=== PATIENT | female | born 1990 | race African-American/Black ===

== ENCOUNTER 2016-12-06 18:17 | Emergency (ER) | payer MEDICAID ==
[~2016-12-06] VITALS: Ht 162.6 cm; Wt 79.4 kg
[2016-12-06] MEDS ORDERED: ACETAMINOPHEN 325 MG TAB PO ONE ×2 (19:31→19:45)
[2016-12-06 20:53] VITALS: BP 138/91
== END 2016-12-06 22:38 | disposition home or self-care (01) ==
LOC: ER 18:22
DX: O9A.211 Injury, poisoning and certain other consequences of external causes complicating pregnancy, first trimester (principal); S13.9XXA Sprain of joints and ligaments of unspecified parts of neck, initial encounter; M54.9 Dorsalgia, unspecified; M25.552 Pain in left hip; M25.551 Pain in right hip; Z3A.09 9 weeks gestation of pregnancy; V43.62XA Car passenger injured in collision with other type car in traffic accident, initial encounter; Y93.89 Activity, other specified; Y92.89 Other specified places as the place of occurrence of the external cause; Y99.8 Other external cause status
CPT/HCPCS: 76801